=== PATIENT | female | born 1950 | race Caucasian/White ===

== ENCOUNTER 2017-06-09 00:07 | Observation (INO) | payer MEDICARE, MEDICAID ==
[2017-06-09] MEDS ORDERED: HYDROcodone/Acetaminophen 5/325 mg Tablet PO PRN ×2 (02:42)
[2017-06-09] MEDS ORDERED: Ondansetron HCl/PF 4 MG/2 ML Vial IVP PRN (02:42)
[2017-06-09] MEDS ORDERED: Acetaminophen 325 MG TAB PO PRN (02:42)
[2017-06-09] MEDS ORDERED: Ondansetron ODT 4 MG TAB SL PRN (02:42)
[2017-06-09 03:01] VITALS: BMI 20.2
--- NOTE | 2017-06-09 13:10 | HP ---
DATE OF ADMISSION: 06/09/2017 CHIEF COMPLAINT: Swallowing bees. HISTORY OF PRESENT ILLNESS: This is a 66-year-old white female. She was in her home relaxing having Dr Leone. She happened to swallow 2 bees, which were actually in the Dr Sulema can accidentally an d then when she realized there was something in her throat, she felt a strong sting of the bee and sh e was unable to breathe and was coughing, so she took more glasses of water to swallow the obstructio n. As the patient's pain was getting worse, patient was brought to the ER. She did not have any swo llen lips at that time, but right now the patient was noted to have lower lip swelling which was also noticed by her friend at the bedside. Patient denies having any chest pain right now. No nausea, n o vomiting, no diarrhea, but continues to have shortness of breath, feeling of shortness of breath an d feeling of something in her throat. The patient has otherwise no known medical problems. She is a chronic smoker. PAST MEDICAL HISTORY: None. PAST SURGICAL HISTORY: History of hysterectomy many years ago. SOCIAL HISTORY: The patient is a known smoker. Smokes 1 pack a day. No history of alcohol, no hist ory of illicit drug use. FAMILY HISTORY: No significant family history of coronary artery disease. One of her sister wi th lung cancer. REVIEW OF SYSTEMS: All 12 systems are reviewed with the patient thoroughly and found to be negative at this time except the ones described in HPI. The following complete review of systems was negative , unless otherwise mentioned in the HPI or below: Constitutional: Weight loss or gain, sense of well-being, ability to conduct usual activities, exerc ise tolerance. Skin/Breast: Rash, itching, changes in hair growth or loss, nail changes, breast lumps, tenderness, swelling, nipple discharge. Eyes: Vision, double vision, tearing, blind spots, pain. ENT/Mouth: Headaches (location, time of onset, duration, precipitating factors), vertigo, lightheade dness, injury. Vision, double vision, tearing, blind spots, pain, nose bleeding, colds, obstruction, discharge, dental difficulties, gingival bleeding, dentures, neck stiffness, pain, tenderness, masses in thyroid or other areas Cardiovascular: Precordial pain, substernal distress, palpitations, syncope, dyspnea on exertion, or thopnea, nocturnal paroxysmal dyspnea, edema, cyanosis, hypertension, heart murmurs, varicosities, ph lebitis, claudication. Respiratory: Pain, shortness of breath, wheezing, stridor, cough, hemoptysis, fever or night sweats Gastrointestinal: Poor appetite, dysphagia, indigestion, abdominal pain, heartburn, eructation, naus ea, vomiting, hematemesis, jaundice, constipation, or diarrhea, abnormal stools (lilo-colored, tarry, bloody, greasy, foul smelling), flatulence, hemorrhoids, recent changes in bowel habits. Genitourinary: Urgency, frequency, dysuria, nocturia, hematuria, polyuria, oliguria, unusual (or zaid nge in) color of urine, stones, hesitancy, change in size of stream, dribbling, acute retention or in continence, libido, potency. Musculoskeletal: Pain, swelling, redness or heat of muscles or joints, limitation, of motion, muscul ar weakness, atrophy, cramps. Neurologic/Psychiatric: Convulsions, paralyses, tremor, incoordination, paraesthesias, difficulties with memory of speech, sensory or motor disturbances, or muscular coordination (ataxia, tremor), emot ional problems, anxiety, depression, previous psychiatric care, unusual perceptions, hallucinations. Allergy/Immunologic: Skin rash, anemia, bleeding tendency, polydipsia, polyuria, intolerance to heat or cold. HOME MEDICATIONS: None. ALLERGIES: No known drug allergies. PHYSICAL EXAMINATION: VITAL SIGNS: Blood pressure 132/67, heart rate is 95, respiration is 18, saturation 95%. GENERAL: The patient is moderately built and moderately nourished. She does not appears to be in ac lissy distress at this time. She is alert and oriented x3. HEENT: Atraumatic, normocephalic, PERRLA. Extraocular muscles were intact. Oral mucosa is pink and moist. Lower lip is swollen with evidence of angioedema. CARDIOVASCULAR: S1 and S2 normal. No murmurs, rubs or gallops. LUNGS: Bilateral air entry was equal. No wheezing, no crackles. ABDOMEN: Soft, nontender, no guarding, no rebound tenderness. Bowel sounds normal. MUSCULOSKELETAL: No calf tenderness. No pedal edema. No joint tenderness, no joint swelling. SKIN: No cyanosis, no erythema, no rash, no pallor. CENTRAL NERVOUS SYSTEM: Cranial nerve examination II-XII intact. No focal deficits are noted. NECK: No thyromegaly, no cervical lymphadenopathy. PSYCHIATRIC: No signs of suicidal ideation. No signs of bruno. No signs of depression. LABORATORY DATA: WBC 7.4, hemoglobin is 14.2, hematocrit is 42.6, platelets 325. Sodium 144, potass ium 3.4, chloride 104, BUN is 12, creatinine is 0.73, blood sugar 121. ASSESSMENT AND PLAN: 1. Acute angioedema from bee sting. 2. Leukocytosis. 3. Hyperglycemia. PLAN: 1. Plan is to closely monitor this patient. Patient has evidence of angioedema with swollen lower l ip and had swollen tongue prior to admission. The patient was given 1 dose of Solu-Medrol in the ER and Benadryl. We will start the patient on Solu-Medrol at 40 mg q.8 hours and with Benadryl 12.5 mg q.8 hours. We will closely monitor for 24 hours to look for any delayed reaction with digoxin as the patient swallowed both bees. 2. The patient has elevated blood sugars. Most likely this could be from the effect of steroids. W e will check hemoglobin A1c. 3. As patient has leukocytosis, most likely secondary to steroids, but we will closely monitor to lo ok for any evidence of infection. We will check the UA. 4. DVT prophylaxis, Lovenox. 5. Disposition plan to discharge patient tomorrow if the patient remains stable and angioedema resol ves. I spent 75 minutes with this patient.
[2017-06-09] MEDS: diphenhydrAMINE 12.5 MG in Sodium Chloride 0.9% 50 ML IVPB SCH ×2 (15:49→21:31)
[2017-06-09 18:41] LABS: Bilirubin Negative (Negative); Blood, Urine Negative (Negative); Clarity CLOUDY (Clear); Glucose, Urine (Dipstick) Negative (Negative); Leukocyte Moderate (Negative); Nitrite Negative (Negative); Protein, Urine (Dipstick) Negative (Neg-Trace); Specific Gravity, Urine 1.008 (1.002-1.036); Urobilinogen 0.2 mg/dL (0.2-1.0)
[2017-06-09 18:43] LABS: Bacteria/HPF 1+ HPF (None Seen); Hyaline Casts/LPF 0-3 HYALINE CAST LPF (0-3 Hyaline); Pathc Cast-AUWi Flag 0.14 (0-2.49); RBC/HPF 0-3 HPF (0-3); WBC/HPF 21-50 HPF (0-3)
[2017-06-10 03:44] VITALS: TEMP 97.6
[2017-06-10 04:48] LABS: #Lymphocytes 1.4 thou/uL (1.20-3.40); #Monocytes 0.2 thou/uL (0.11-0.59); #Neutrophils 6.3 thou/uL (1.40-6.50); %Basophils 0.2 % (0.0-1.0); %Eosinophils 0.1 % (0.0-10.0); %Lymphocytes 17.4 % (21.0-51.0); %Neutrophils 80.3 % (42.0-75.0); Mean Corpuscular HGB CONC 34.6 g/dL (32.0-36.0); Mean Corpuscular Hemoglobin 32.1 pg (27.0-31.0); Mean Corpuscular Volume 92.9 fl (81.0-99.0); Mean Platelet Volume 6.5 fL (7.4-10.4); Platelet Count 284 thou/uL (130-400); RBC Distribution Width 11.9 % (11.5-14.5); Red Blood Cell (RBC) Count 4.05 mill/uL (4.20-5.40); White Blood Cell (WBC) Count 7.8 thou/uL (4.8-10.8)
[2017-06-10 04:53] LABS: Anion Gap 11 mmol/L (10-20); BUN (Urea Nitrogen) 15 mg/dL (9.8-20.1); Calc. Creatinine Clearance 64 mL/min (70-130); Calcium 9.8 mg/dL (7.8-10.44); Carbon Dioxide 26 mmol/L (23-31); Chloride 108 mmol/L (98-107); Estimated GFR-MDRD 79; Glucose 141 mg/dL (80-115); Potassium 4.1 mmol/L (3.5-5.1); Sodium 141 mmol/L (136-145)
[2017-06-10] MEDS: diphenhydrAMINE 12.5 MG in Sodium Chloride 0.9% 50 ML IVPB SCH (06:11)
[2017-06-10 08:01] VITALS: BP 136/75
[2017-06-10] MEDS ORDERED: Enoxaparin Sodium 40 MG/0.4 ML SYRINGE SC SCH (09:00)
[2017-06-10] MEDS ORDERED: Cephalexin 250 MG CAP PO SCH ×3 (11:00→15:00)
--- NOTE | 2017-06-10 11:50 | DIS ---
DATE OF ADMISSION: 06/09/2017 DATE OF DISCHARGE: 06/10/2017 ADMITTING DIAGNOSIS: Acute bee sting reaction. DISCHARGE DIAGNOSIS: Acute bee sting related angioedema. SECONDARY DIAGNOSIS: Moderate dehydration. HISTORY OF PRESENT ILLNESS AND HOSPITAL COURSE: In brief, this is a 66-year-old white female who hap pened to had a bee sting when she swallowed accidentally Dr. Leone. The patient complained initiall y of coughing and breathing problems when she came to the ER and then she developed a swelling of the lower lip. So, the patient was started on Benadryl and Solu-Medrol. Within 24 hours of steroid glen atment, the patient's symptoms resolved and the lip swelling also resolved. The patient was able to breathe normally on room air. She is a chronic smoker, counseled the patient to quit smoking. The patient is discharged home in stable condition. The patient was noted to have urinary tract infe ction, which was more of incidental finding, but the patient did not have any symptoms. PHYSICAL EXAMINATION: On date of discharge: VITAL SIGNS: Blood pressures are 136/75, heart rate is 94, respiration rate 16 and saturation 98%. CARDIOVASCULAR: S1 and S2 normal. No murmurs, rubs or gallops. LUNGS: Bilateral air entry was equal. No wheezing, no crackles. HEENT: Lips were noted to be in normal size. No tongue swelling and no soft palate swelling was not ed. DISCHARGE MEDICATIONS: The patient was discharged on Benadryl 25 mg p.o. q.8 hours p.r.n. for itchin g and Keflex 500 mg p.o. t.i.d. continue for 10 days. DISCHARGE INSTRUCTIONS: Continue activity as tolerated. Advised to return to the ER if the patient develops any worsening shortness of breath or any lip swelling again. I advised the patient to close ly monitor for any further bee stings. Advised to follow up with the primary care physician in 1-2 w eeks. Advised the patient to quit smoking and counseling was done for 15 minutes. I spent 35 minutes with this patient.
== END 2017-06-10 11:58 | disposition home or self-care (01) ==
LOC: ERS 00:07 → 2SW 02:40
PROVIDERS: ADMIT Internal Medicine; ATTEND Internal Medicine
DX: T63.441A Toxic effect of venom of bees, accidental (unintentional), initial encounter (principal); T78.3XXA Angioneurotic edema, initial encounter; E86.0 Dehydration; F17.210 Nicotine dependence, cigarettes, uncomplicated; R73.9 Hyperglycemia, unspecified; D72.829 Elevated white blood cell count, unspecified; Z90.710 Acquired absence of both cervix and uterus
CPT/HCPCS: 80048; 81001; 83036; 85025; 96365; 96366 ×2; 96372; 96375; 96376 ×2; 97139; 99285; G0378; 36415; A4216; G8996-GN-CH; G8997-GN-CH; J1200; J1650; J2920; J7050

== ENCOUNTER 2018-02-17 21:37 | Inpatient (IN) | payer MEDICAID, MEDICARE ==
[2018-02-17] MEDS ORDERED: Nitroglycerin 2% Ointment 1 INCH/1 GM Packet ONE (22:02)
[2018-02-17] MEDS ORDERED: Ondansetron PF 4 MG/2 ML Vial ONE (22:07)
--- NOTE | 2018-02-17 22:29 | RAD ---
SINGLE VIEW OF THE CHEST 02/17/18 COMPARISON: 12/31/13 HISTORY: Chest pain. FINDINGS: Single view of the chest shows a normal sized cardiomediastinal silhouette with atherosclerotic calci fications in the aorta. There is no evidence of consolidation, mass, or pleural effusion. IMPRESSION: No evidence of acute cardiopulmonary disease. POS: [facility]
[2018-02-17 22:34] LABS: #Basophils 0.1 thou/uL (0.0-0.2); #Lymphocytes 1.5 thou/uL (1.20-3.40); #Monocytes 0.4 thou/uL (0.11-0.59); %Basophils 0.6 % (0.0-1.0); %Eosinophils 0.3 % (0.0-10.0); %Lymphocytes 13.7 % (21.0-51.0); %Monocytes 3.4 % (0.0-10.0); Hemoglobin 13.8 g/dL (12.0-16.0); Mean Corpuscular HGB CONC 33.5 g/dL (32.0-36.0); Mean Corpuscular Hemoglobin 30.4 pg (27.0-31.0); Mean Corpuscular Volume 90.7 fL (78.0-98.0); Mean Platelet Volume 6.7 fL (7.4-10.4); Platelet Count 330 thou/uL (130-400); RBC Distribution Width 13.4 % (11.5-14.5); Red Blood Cell (RBC) Count 4.53 mill/uL (4.20-5.40); White Blood Cell (WBC) Count 10.9 thou/uL (4.8-10.8)
[2018-02-17 22:48] LABS: ALT (SGPT) 9 U/L (8-55); AST (SGOT) 14 U/L (5-34); Albumin 4.1 g/dL (3.4-4.8); Alkaline Phosphatase 99 U/L (40-150); Anion Gap 15 mmol/L (10-20); BUN (Urea Nitrogen) 16 mg/dL (9.8-20.1); Bilirubin, Total 0.3 mg/dL (0.2-1.2); CK (CPK) 79 U/L (29-168); Calc. Creatinine Clearance 0 mL/min (70-130); Carbon Dioxide 25 mmol/L (23-31); Chloride 102 mmol/L (98-107); Estimated GFR-MDRD 74; Globulin 3.6 g/dL (2.4-3.5); Glucose 133 mg/dL (80-115); Potassium 3.5 mmol/L (3.5-5.1); Protein, Total 7.7 g/dL (6.0-8.3); Sodium 138 mmol/L (136-145)
[2018-02-17 22:53] LABS: CKMB 5.8 ng/mL (0-6.6); Troponin I 0.071 ng/mL (< 0.028)
[2018-02-17] MEDS ORDERED: Nitroglycerin 50 MG/250 ML BOT 250 ML ONE (23:26)
[2018-02-17] MEDS ORDERED: Heparin 25,000 units/D5W 500 ML ONE (23:26)
[2018-02-17] MEDS ORDERED: Heparin 1,000 UNITS/ML VIAL ONE ×2 (23:30→23:34)
[2018-02-17 23:35] LABS: PTT 25.1 SEC (22.9-36.1); Prothrombin Time 13.3 SEC (12.0-14.7)
[2018-02-18 00:22] LABS: INR-International Normal Ratio 1.1; Prothrombin Time 14.3 SEC (12.0-14.7)
[2018-02-18 00:30] LABS: ALT (SGPT) 11 U/L (8-55); AST (SGOT) 21 U/L (5-34); Alkaline Phosphatase 100 U/L (40-150); Anion Gap 15 mmol/L (10-20); BUN (Urea Nitrogen) 16 mg/dL (9.8-20.1); Bilirubin, Total 0.3 mg/dL (0.2-1.2); Calc. Creatinine Clearance 0 mL/min (70-130); Calcium 9.8 mg/dL (7.8-10.44); Carbon Dioxide 23 mmol/L (23-31); Chloride 103 mmol/L (98-107); Estimated GFR-MDRD 81; Globulin 3.5 g/dL (2.4-3.5); Glucose 130 mg/dL (80-115); Potassium 3.8 mmol/L (3.5-5.1); Protein, Total 7.5 g/dL (6.0-8.3); Sodium 137 mmol/L (136-145)
[2018-02-18 00:32] LABS: #Basophils 0.1 thou/uL (0.0-0.2); #Lymphocytes 1.3 thou/uL (1.20-3.40); #Monocytes 0.3 thou/uL (0.11-0.59); #Neutrophils 7.7 thou/uL (1.40-6.50); %Basophils 1.1 % (0.0-1.0); %Eosinophils 0.2 % (0.0-10.0); %Lymphocytes 13.4 % (21.0-51.0); %Monocytes 2.7 % (0.0-10.0); %Neutrophils 82.7 % (42.0-75.0); Hemoglobin 13.3 g/dL (12.0-16.0); Mean Corpuscular HGB CONC 32.2 g/dL (32.0-36.0); Mean Corpuscular Hemoglobin 29.2 pg (27.0-31.0); Mean Corpuscular Volume 90.7 fL (78.0-98.0); Mean Platelet Volume 6.8 fL (7.4-10.4); Platelet Count 319 thou/uL (130-400); RBC Distribution Width 13.4 % (11.5-14.5); Red Blood Cell (RBC) Count 4.57 mill/uL (4.20-5.40); White Blood Cell (WBC) Count 9.4 thou/uL (4.8-10.8)
[2018-02-18] MEDS ORDERED: Clopidogrel Bisulfate 300 MG TAB ONE (00:44)
[2018-02-18] MEDS ORDERED: Bivalirudin 250 MG VIAL ONE (00:44)
[2018-02-18] MEDS ORDERED: Heparin 10,000 UNITS/1 ML VIAL ONE (00:53)
[2018-02-18] MEDS ORDERED: Ondansetron PF 4 MG/2 ML Vial ONE (00:54)
[2018-02-18] MEDS ORDERED: DOPamine 400 MG/D5W 250 ML 250 ML ONE (00:54)
[2018-02-18] MEDS ORDERED: Zolpidem Tartrate 5 MG TAB PO PRN ×2 (01:16→02:07)
[2018-02-18] MEDS ORDERED: Morphine 4 MG/ML VIAL SLOW IVP PRN (01:16)
[2018-02-18] MEDS ORDERED: Mag-Al 1200 mg/1200 mg/30 ML UDCUP PO PRN (01:16)
[2018-02-18] MEDS ORDERED: Morphine 2 MG/ML SYRINGE SLOW IVP PRN (01:16)
[2018-02-18] MEDS ORDERED: Clopidogrel Bisulfate 75 MG TAB ONE (01:16)
[2018-02-18] MEDS ORDERED: Nitroglycerin 0.4 MG TAB (25 Tab Bottle) SL PRN ×2 (01:16→02:07)
[2018-02-18] MEDS ORDERED: ALPRAZolam 0.25 MG TAB PO PRN (01:18)
[2018-02-18] MEDS ORDERED: Sodium Chloride 0.9% 1,000 ML IV SCH (01:30)
[2018-02-18] MEDS ORDERED: Ondansetron ODT 4 MG TAB SL PRN (01:52)
[2018-02-18] MEDS ORDERED: Ondansetron PF 4 MG/2 ML Vial IVP PRN ×2 (01:52→02:07)
[2018-02-18] MEDS ORDERED: Acetaminophen 325 MG TAB PO PRN (01:52)
[2018-02-18] MEDS ORDERED: Calcium Carbonate 500 MG ChewTAB PO PRN (02:07)
[2018-02-18] MEDS ORDERED: Ondansetron ODT 4 MG TAB PO PRN (02:07)
[2018-02-18] MEDS ORDERED: Bisacodyl 5 MG TAB PO PRN (02:07)
[2018-02-18] MEDS ORDERED: diphenhydrAMINE 25 MG CAP PO PRN (02:07)
[2018-02-18] MEDS ORDERED: Senokot S 8.6-50 MG TAB PO PRN (02:07)
[2018-02-18] MEDS ORDERED: Acetaminophen 650 MG Suppository PR PRN (02:07)
[2018-02-18 02:14] VITALS: BMI 18.8
[2018-02-18 02:20] LABS: CKMB 21.6 ng/mL (0-6.6); Troponin I 0.335 ng/mL (< 0.028)
[2018-02-18 02:45] LABS: Troponin I 7.235 ng/mL (< 0.028)
[2018-02-18] MEDS: Sodium Chloride 0.9% 1,000 ML IV SCH ×3 (03:24→16:37)
--- NOTE | 2018-02-18 04:31 | HP ---
HISTORY OF PRESENT ILLNESS: Angelita Butler is a 67-year-old white female with previous history of hypertension and hypercholesterolemia; however, she is not taking any medications for 1 year due to the cost. Today at 6:45 PM, she had onset of central chest pressure and she came to the emergency room. Initial EKGs only showed non-specific ST and T wave changes; however, repeat EKG now is showing [address] segment elevation in II, III and aVF, V4 through V6 consistent with inferolateral myocardial infarction. Although, at the present time, she states she is pain free. PAST MEDICAL HISTORY: Hypertension, hypercholesterolemia, noncompliance with medications. No history of diabetes. MEDICATIONS: None. ALLERGIES: NONE. OPERATIONS: None. SOCIAL HISTORY: She smokes 3 packs per day. She does not drink. FAMILY HISTORY: Negative for coronary artery disease. REVIEW OF SYSTEMS: A 12-point review of systems is unremarkable. PHYSICAL EXAMINATION: VITAL SIGNS: Blood pressure 120/80, pulse of 70. HEENT: PERRL. NECK: Supple. CHEST: Clear. CARDIAC: S1 and S2 are normal without any S3, S4, or murmurs. Carotid upstroke is normal with a right carotid bruit. ABDOMEN: Normal bowel sounds without tenderness or organomegaly. EXTREMITIES: Revealed no clubbing, cyanosis, or edema. NEUROLOGICAL: Grossly intact. LABORATORY DATA: EKG findings as noted above. White count 10,900, hemoglobin 13.8, hematocrit 41.1. INR 1.0. Sodium 138, potassium 3.5, chloride 102, carbon dioxide 25, BUN 16, creatinine 0.78, glucose 133. Troponin I is 0.071. CK-MB 5.8. IMPRESSION: 1. Acute coronary syndrome, now with [address]-elevation in the inferolateral leads. 2. Hypertension, noncompliance with medications. 3. Hypercholesterolemia, noncompliance with medications. 4. Smokes 3 packs per day. 5. Right carotid bruit. PLAN: Situation was discussed with the patient. It was recommended to undergo emergent catheterization. Risks were discussed including , myocardial infarction, dye reaction, vascular injury, CVA, transfusion, limb loss, renal loss, etc. Risks of stent placement were discussed including , myocardial infarction, emergent CABG, restenosis, stent thrombosis, vessel perforation, etc. With her history of noncompliance with medications, I would only place a bare- metal stent. She agrees to proceed. Job ID: [id number] SHALINI
[2018-02-18 04:50] LABS: #Lymphocytes 1.5 thou/uL (1.20-3.40); #Monocytes 0.3 thou/uL (0.11-0.59); #Neutrophils 6.2 thou/uL (1.40-6.50); %Basophils 0.1 % (0.0-1.0); %Eosinophils 0.2 % (0.0-10.0); %Lymphocytes 18.6 % (21.0-51.0); %Monocytes 3.6 % (0.0-10.0); %Neutrophils 77.5 % (42.0-75.0); Hemoglobin 12.1 g/dL (12.0-16.0); Mean Corpuscular HGB CONC 33.7 g/dL (32.0-36.0); Mean Corpuscular Hemoglobin 30.2 pg (27.0-31.0); Mean Corpuscular Volume 89.4 fL (78.0-98.0); Mean Platelet Volume 6.6 fL (7.4-10.4); Platelet Count 300 thou/uL (130-400); RBC Distribution Width 13.2 % (11.5-14.5); Red Blood Cell (RBC) Count 4.01 mill/uL (4.20-5.40)
[2018-02-18 05:04] LABS: Anion Gap 13 mmol/L (10-20); BUN (Urea Nitrogen) 15 mg/dL (9.8-20.1); Calc. Creatinine Clearance 70 mL/min (70-130); Calcium 8.9 mg/dL (7.8-10.44); Carbon Dioxide 23 mmol/L (23-31); Cardiac Risk 4.3 (Less than 4.5); Chloride 107 mmol/L (98-107); Cholesterol 198 mg/dl (< 200 Desired); Estimated GFR-MDRD Greater than 90; Glucose 123 mg/dL (80-115); HDL Cholesterol 46 mg/dL (>60 Neg Risk); LDL Cholesterol, Calculated 132 mg/dL; Potassium 3.8 mmol/L (3.5-5.1); Sodium 139 mmol/L (136-145); Triglycerides 101 mg/dL (Less than 150)
--- NOTE | 2018-02-18 07:46 | HP ---
CHIEF COMPLAINT: Chest pain. HISTORY OF PRESENT ILLNESS: This is a 67-year-old white female with past medical history of hypertension and hypercholesterolemia, who presented to our ED via EMS with a chief complaint of chest pain. Per patient, the chest pain is 5/10, severe, located substernally. The patient states that she has been noncompliant with her medications, and on the day of admission around 6:45, she had an onset of substernal chest pain, which was pressure-like in nature. The patient endorses chest pain, otherwise denies any complaint of fever, chills, abdominal pain, dysuria, hematuria, hematochezia, or melena. EMERGENCY DEPARTMENT COURSE: In the ED, the patient was found to have nonspecific ST and T-wave changes. Repeat EKG showed [address]-segment elevation in leads II, III, aVF, and V4 through V6 consistent with inferolateral MT. At that time, physical therapy assistant was called and per the troponins, the patient's first set was 0.07, which was indeterminate, but the second set was . The patient was then sent to the [facility] and a STEMI alert was called. REVIEW OF SYSTEMS: Positive for chest pain, otherwise as documented in the HPI, all other systems were reviewed and are negative. PAST MEDICAL HISTORY: Hypertension and hypercholesterolemia. MEDICATIONS: The patient does not take her medications. The patient is noncompliant. FAMILY HISTORY: Negative for coronary artery disease. ALLERGIES: NO KNOWN DRUG ALLERGIES. PAST SURGICAL HISTORY: No known surgery. SOCIAL HISTORY: The patient smokes 3 packs per day. The patient denies any illicit drug use. The patient lives at home with family. PHYSICAL EXAMINATION: VITAL SIGNS: The patient's blood pressure is 157/86, pulse of 78, respiratory rate of 24, temperature 97.6, O2 saturation is 97%. GENERAL: The patient is alert and oriented x3, not in acute distress. The patient is lying comfortably in bed, does not appear to be in any distress, speaking in full sentences. HEENT: Normocephalic, atraumatic. Pupils are equal, round, and reactive to light. Extraocular movements are intact. No scleral icterus. No conjunctival pallor. NECK: Trachea is midline. Full range of motion. LUNGS: Clear to auscultation bilaterally. No wheezing, no rales, no rhonchi appreciated. CARDIAC: Positive S1 and S2. Regular rate and rhythm. No murmurs, no gallops, no rubs appreciated. ABDOMEN: Soft, nontender, and nondistended. Positive bowel sounds in all quadrants. EXTREMITIES: The patient has 5/5 upper extremity strength with good pulses bilaterally and 5/5 lower extremity strength, good pulses bilaterally. NEUROLOGIC: Cranial nerves 2 through 12 grossly intact. No neurologic deficits noted. SKIN: Warm, dry, and intact. PSYCHIATRIC: Normal affect. DIAGNOSTIC DATA: EKG showed ST depression in V2 and V3 and T-wave inverted. Repeated EKG showed ST elevations in II, III, and aVF. Labs: WBC 10.9, hemoglobin 13.8, hematocrit 41.1, platelet count 330. PT is 13.3, INR is 1.0, PTT 25.1. Sodium is 138, potassium is 3.5, BUN is 16, creatinine is 0.78, glucose is 133. Troponin first set is 0.071, second set . CK-MB 21.6. ASSESSMENT AND PLAN: 1. This is a 67-year-old female who is very noncompliant, presenting with ST elevation myocardial infarction. At this point, the patient has been admitted to the ICU. Cardiology has been consulted. The patient is being scheduled to go to the [facility] for PCI. We will follow up with the physical therapy assistant recommendations and we have started the patient on cardiac medications. We will continue these medications and we will monitor the patient in the ICU after cardiac cath. 2. History of hypertension. The patient is noncompliant with medications. At this point, we will monitor the patient's blood pressure closely and we will manage the patient's blood pressure accordingly. 3. Hyperlipidemia. We will start the patient on statins. We will continue the patient on her medication. 4. Deep vein thrombosis and gastrointestinal prophylaxis. Job ID: [id number]
[2018-02-18] MEDS ORDERED: Aspirin 325 mg Enteric Coated Tablet PO SCH (09:00)
[2018-02-18] MEDS ORDERED: Clopidogrel Bisulfate 75 MG TAB PO SCH (09:00)
[2018-02-18] MEDS: Metoprolol Tartrate 25 MG TAB PO SCH ×2 (09:41→20:40)
[2018-02-18] MEDS: Clopidogrel Bisulfate 75 MG TAB PO SCH (09:41)
[2018-02-18] MEDS: Famotidine 20 MG TAB PO SCH ×2 (09:42→20:38)
[2018-02-18] MEDS: Famotidine/PF 20 mg/2ml Vial SLOW IVP SCH ×2 (09:42→20:39)
[2018-02-18] MEDS: Acetaminophen 325 MG TAB PO PRN (10:23)
--- NOTE | 2018-02-18 10:39 | ULT ---
CAROTID DUPLEX ULTRASOUND: INDICATIONS: History of right carotid bruit. FINDINGS: There is mild atherosclerotic plaque involving the distal right common carotid artery, the distal lef t common carotid artery, and the proximal left internal carotid artery. The peak systolic velocity measured in the right common carotid artery was 166.3 cm per second. The peak systolic velocity in the right internal carotid artery was 94 cm per second. The right ICA/CCA ratio is 0.57. Antegrade flow is seen within the right vertebral artery. The peak systolic velocity measured in the left common carotid artery was 109.4 cm per second, and th e left ICA was 88.4 cm per second. The left ICA/CCA ratio is 0.81. Antegrade flow is seen within th e left vertebral artery. There is slight heterogeneity seen of the right thyroid gland. There is a 2.1 cm heterogeneous but p redominantly hyperechoic solid mass within the posterior right thyroid gland. In light of the patien t's age and the size of the lesion, a dedicated thyroid ultrasound would be recommended. IMPRESSION: 1. No hemodynamically significant stenosis seen involving the internal carotid artery. 2. Large solid nodule within the right thyroid gland. In light of the patient's age and size of the lesion, a dedicated nonemergent thyroid ultrasound evaluation is recommended. POS: [facility]
--- NOTE | 2018-02-18 13:12 | PDOC.PN ---
- Subjective Encounter Start Date: 02/18/18 Encounter Start Time: 10:10 Subjective: no chest pain or sob -: grand children at bedside - Objective Resuscitation Status - Order Detail: 02/18/18 00:46 Resuscitation Status Routine Resuscitation Status: FULL: Full Resuscitation MAR Reviewed: Yes Vital Signs & Weight: Vital Signs (12 hours) Temp Pulse Ox 02/18/18 12:00 98.3 F 02/18/18 11:51 95 02/18/18 08:00 98.4 F 02/18/18 07:48 98 02/18/18 04:00 97.8 F 02/18/18 02:42 98 02/18/18 02:00 97.6 F Weight Weight 109 lb 9.116 oz Most Recent Monitor Data Heart Rate from ECG 73 NIBP 111/62 NIBP BP-Mean 78 Respiration from ECG 17 SpO2 95 I&O: 02/17/18 02/18/18 02/19/18 06:59 06:59 06:59 Intake Total 389 540 Output Total 550 775 Balance -161 -235 Result Diagrams: 02/18/18 04:20 02/18/18 04:20 Phys Exam - Physical Examination HEENT: PERRLA, moist MMs Neck: no JVD, supple Respiratory: no wheezing, no rales rhonchi+ Cardiovascular: RRR, no significant murmur Gastrointestinal: soft, non-tender, positive bowel sounds Musculoskeletal: no edema, pulses present Neurological: non-focal, moves all 4 limbs Psychiatric: normal affect, A&O x 3 Dx/Plan (1) STEMI (ST elevation myocardial infarction) Status: Acute Comment: s/p stent to circumflex (2) HTN (hypertension) Code(s): I10 - ESSENTIAL (PRIMARY) HYPERTENSION Status: Chronic Qualifiers: Hypertension type: essential hypertension Qualified Code(s): I10 - Essential (primary) hypertension (3) Dyslipidemia Code(s): E78.5 - HYPERLIPIDEMIA, UNSPECIFIED Status: Chronic (4) Tobacco abuse Code(s): Z72.0 - TOBACCO USE Status: Chronic (5) Non compliance with medical treatment Code(s): Z91.19 - PATIENT'S NONCOMPLIANCE W OTH MEDICAL TREATMENT AND REGIMEN Status: Chronic - Plan is on asp, plavix, lipitor, lopressor -: iv fluids -: oral diet -: to amb after cath protocol is completed -: counselled reg med and dietary compliance * . Review of Systems - Medications/Allergies Allergies/Adverse Reactions: Allergies Allergy/AdvReac Type Severity Reaction Status Date / Time No Known Allergies Allergy Verified 06/09/17 02:56 Medications: Current Medications Acetaminophen (Tylenol) 650 mg PO Q4H PRN PRN Reason: Headache/Fever/Mild Pain (1-3) Last Admin: 02/18/18 10:23 Dose: 650 mg Acetaminophen (Tylenol) 650 mg [place] Q4H PRN PRN Reason: Headache/Fever/Mild Pain (1-3) Al Hydroxide/Mg Hydroxide (Maalox) 30 ml PO Q3H PRN PRN Reason: Indigestion Alprazolam (Xanax) 0.25 mg PO QIDPRN PRN PRN Reason: Anxiety Aspirin (Aspirin Chewable) 81 mg PO DAILY [facility] Last Admin: 02/18/18 09:42 Dose: 81 mg Atorvastatin Calcium (Lipitor) 40 mg PO HS [facility] Bisacodyl (Dulcolax) 10 mg PO DAILYPRN PRN PRN Reason: Constipation Calcium Carbonate (Tums) 1,000 mg PO Q4H PRN PRN Reason: Heartburn or Indigestion Clopidogrel Bisulfate (Plavix) 75 mg PO DAILY [facility] Last Admin: 02/18/18 09:41 Dose: 75 mg Diphenhydramine HCl (Benadryl) 25 mg PO Q6H PRN PRN Reason: itching Famotidine (Pepcid) 20 mg SLOW IVP Q12HR [facility] Last Admin: 02/18/18 09:42 Dose: Not Given Famotidine (Pepcid) 20 mg PO BID [facility] Last Admin: 02/18/18 09:42 Dose: 20 mg Guaifenesin/Dextromethorphan (Robitussin Dm) 15 ml PO Q4H PRN PRN Reason: Cough Sodium Chloride (Normal Saline 0.9%) 1,000 mls @ 100 mls/hr IV .Q10H [facility] Last Admin: 02/18/18 07:35 Dose: 1,000 mls Metoprolol Tartrate (Lopressor) 12.5 mg PO BID [facility] Last Admin: 02/18/18 09:41 Dose: 12.5 mg Morphine Sulfate (Morphine) 2 mg SLOW IVP Q4H PRN PRN Reason: Moderate Pain (4-6) Morphine Sulfate (Morphine) 4 mg SLOW IVP Q4H PRN PRN Reason: Severe Pain (7-10) Nitroglycerin (Nitrostat) 0.4 mg SL Q5MIN PRN PRN Reason: Chest Pain Nitroglycerin (Nitrostat) 0.4 mg SL Q5MIN PRN PRN Reason: Chest Pain Ondansetron HCl (Zofran Odt) 4 mg PO Q6H PRN PRN Reason: Nausea/Vomiting Ondansetron HCl (Zofran) 4 mg IVP Q6H PRN PRN Reason: Nausea/Vomiting Senna/Docusate Sodium (Senokot S) 2 tab PO BIDPRN PRN PRN Reason: Constipation Sodium Chloride (Flush - Normal Saline) 10 ml IVF Q12HR [facility] Last Admin: 02/18/18 09:43 Dose: 10 ml Sodium Chloride (Flush - Normal Saline) 10 ml IVF PRN PRN PRN Reason: Saline Flush Sodium Chloride (Flush - Normal Saline) 10 ml IVF Q12HR [facility] Sodium Chloride (Flush - Normal Saline) 10 ml IVF PRN PRN PRN Reason: Saline Flush Zolpidem Tartrate (Ambien) 5 mg PO HSPRN PRN PRN Reason: Insomnia Zolpidem Tartrate (Ambien) 5 mg PO HSPRN PRN PRN Reason: Insomnia
[2018-02-18] MEDS ORDERED: Sodium Chloride 0.9% 250 ML 250 ML IVPB SCH (20:30)
[2018-02-18] MEDS: Atorvastatin Calcium 40 MG TAB PO SCH (20:38)
[2018-02-18] MEDS: Guaifenesin DM 100-10/5 ML UDCUP PO PRN (20:42)
[2018-02-19 05:45] LABS: #Basophils 0.1 thou/uL (0.0-0.2); #Eosinphils 0.1 thou/uL (0.0-0.7); #Lymphocytes 2.3 thou/uL (1.20-3.40); #Monocytes 0.3 thou/uL (0.11-0.59); #Neutrophils 2.8 thou/uL (1.40-6.50); %Basophils 0.9 % (0.0-1.0); %Lymphocytes 41.6 % (21.0-51.0); %Monocytes 5.7 % (0.0-10.0); %Neutrophils 50.8 % (42.0-75.0); Hemoglobin 11.7 g/dL (12.0-16.0); Mean Corpuscular HGB CONC 33.4 g/dL (32.0-36.0); Mean Corpuscular Hemoglobin 30.4 pg (27.0-31.0); Mean Platelet Volume 6.8 fL (7.4-10.4); Platelet Count 250 thou/uL (130-400); RBC Distribution Width 13.1 % (11.5-14.5); Red Blood Cell (RBC) Count 3.86 mill/uL (4.20-5.40); White Blood Cell (WBC) Count 5.5 thou/uL (4.8-10.8)
[2018-02-19 06:00] LABS: ALT (SGPT) 24 U/L (8-55); AST (SGOT) 75 U/L (5-34); Albumin 3.2 g/dL (3.4-4.8); Alkaline Phosphatase 76 U/L (40-150); Anion Gap 9 mmol/L (10-20); BUN (Urea Nitrogen) 10 mg/dL (9.8-20.1); Bilirubin, Total 0.3 mg/dL (0.2-1.2); Calc. Creatinine Clearance 62 mL/min (70-130); Calcium 8.8 mg/dL (7.8-10.44); Carbon Dioxide 25 mmol/L (23-31); Cardiac Risk 4.1 (Less than 4.5); Chloride 110 mmol/L (98-107); Cholesterol 173 mg/dl (< 200 Desired); Estimated GFR-MDRD 85; Globulin 2.8 g/dL (2.4-3.5); Glucose 86 mg/dL (80-115); HDL Cholesterol 42 mg/dL (>60 Neg Risk); LDL Cholesterol, Calculated 116 mg/dL; Potassium 3.8 mmol/L (3.5-5.1); Sodium 140 mmol/L (136-145); Triglycerides 75 mg/dL (Less than 150)
[2018-02-19] MEDS: Metoprolol Tartrate 25 MG TAB PO SCH ×2 (08:34→21:07)
[2018-02-19] MEDS: Clopidogrel Bisulfate 75 MG TAB PO SCH (08:34)
[2018-02-19] MEDS: Famotidine 20 MG TAB PO SCH ×2 (08:35→21:07)
[2018-02-19] MEDS: Famotidine/PF 20 mg/2ml Vial SLOW IVP SCH (08:35)
--- NOTE | 2018-02-19 12:20 | PDOC.PN ---
- Subjective Encounter Start Date: 02/19/18 Encounter Start Time: 07:45 Subjective: no chest pain or palp -: feels good, no sob - Objective Resuscitation Status - Order Detail: 02/18/18 00:46 Resuscitation Status Routine Resuscitation Status: FULL: Full Resuscitation MAR Reviewed: Yes Vital Signs & Weight: Vital Signs (12 hours) Temp Pulse Resp Pulse Ox 02/19/18 12:00 98.5 F 02/19/18 08:00 98.2 F 02/19/18 07:25 73 17 02/19/18 07:04 96 02/19/18 07:00 98.2 F 02/19/18 04:00 98.6 F Weight Weight 109 lb 9.116 oz Most Recent Monitor Data Heart Rate from ECG 86 NIBP 110/68 NIBP BP-Mean 82 Respiration from ECG 26 SpO2 98 I&O: 02/18/18 02/19/18 02/20/18 06:59 06:59 06:59 Intake Total 389 2156 840 Output Total 550 2700 700 Balance -161 -544 140 Result Diagrams: 02/19/18 05:19 02/19/18 05:19 Phys Exam - Physical Examination HEENT: PERRLA, moist MMs Neck: no JVD, supple Respiratory: no wheezing, no rales Cardiovascular: RRR, no significant murmur Gastrointestinal: soft, non-tender, positive bowel sounds Musculoskeletal: no edema, pulses present Neurological: non-focal, moves all 4 limbs Psychiatric: normal affect, A&O x 3 Dx/Plan (1) STEMI (ST elevation myocardial infarction) Status: Acute Qualifiers: Involved coronary artery: left circumflex coronary artery Qualified Code(s) : I21.21 - ST elevation (STEMI) myocardial infarction involving left circumflex coronary artery Comment: s/p stent to circumflex (2) HTN (hypertension) Code(s): I10 - ESSENTIAL (PRIMARY) HYPERTENSION Status: Chronic Qualifiers: Hypertension type: essential hypertension Qualified Code(s): I10 - Essential (primary) hypertension (3) Dyslipidemia Code(s): E78.5 - HYPERLIPIDEMIA, UNSPECIFIED Status: Chronic (4) Tobacco abuse Code(s): Z72.0 - TOBACCO USE Status: Chronic (5) Non compliance with medical treatment Code(s): Z91.19 - PATIENT'S NONCOMPLIANCE W OTH MEDICAL TREATMENT AND REGIMEN Status: Chronic - Plan hemostable -: is on asp, lipitor and lopressor -: dc plan per cardio advice -: to amb in hallway, may tx to tele if she stay tonight * . Review of Systems - Medications/Allergies Allergies/Adverse Reactions: Allergies Allergy/AdvReac Type Severity Reaction Status Date / Time No Known Allergies Allergy Verified 06/09/17 02:56 Medications: Current Medications Acetaminophen (Tylenol) 650 mg PO Q4H PRN PRN Reason: Headache/Fever/Mild Pain (1-3) Last Admin: 02/18/18 10:23 Dose: 650 mg Acetaminophen (Tylenol) 650 mg [place] Q4H PRN PRN Reason: Headache/Fever/Mild Pain (1-3) Al Hydroxide/Mg Hydroxide (Maalox) 30 ml PO Q3H PRN PRN Reason: Indigestion Albuterol/Ipratropium (Duoneb) 3 ml NEB [id number] [facility] Last Admin: 02/19/18 07:25 Dose: 3 ml Alprazolam (Xanax) 0.25 mg PO QIDPRN PRN PRN Reason: Anxiety Aspirin (Aspirin Chewable) 81 mg PO DAILY [facility] Last Admin: 02/19/18 08:35 Dose: 81 mg Atorvastatin Calcium (Lipitor) 40 mg PO HS [facility] Last Admin: 02/18/18 20:38 Dose: 40 mg Bisacodyl (Dulcolax) 10 mg PO DAILYPRN PRN PRN Reason: Constipation Calcium Carbonate (Tums) 1,000 mg PO Q4H PRN PRN Reason: Heartburn or Indigestion Clopidogrel Bisulfate (Plavix) 75 mg PO DAILY [facility] Last Admin: 02/19/18 08:34 Dose: 75 mg Diphenhydramine HCl (Benadryl) 25 mg PO Q6H PRN PRN Reason: itching Famotidine (Pepcid) 20 mg PO BID [facility] Last Admin: 02/19/18 08:35 Dose: 20 mg Guaifenesin/Dextromethorphan (Robitussin Dm) 15 ml PO Q4H PRN PRN Reason: Cough Last Admin: 02/18/18 20:42 Dose: 15 ml Metoprolol Tartrate (Lopressor) 12.5 mg PO BID [facility] Last Admin: 02/19/18 08:34 Dose: 12.5 mg Morphine Sulfate (Morphine) 2 mg SLOW IVP Q4H PRN PRN Reason: Moderate Pain (4-6) Morphine Sulfate (Morphine) 4 mg SLOW IVP Q4H PRN PRN Reason: Severe Pain (7-10) Nitroglycerin (Nitrostat) 0.4 mg SL Q5MIN PRN PRN Reason: Chest Pain Nitroglycerin (Nitrostat) 0.4 mg SL Q5MIN PRN PRN Reason: Chest Pain Ondansetron HCl (Zofran Odt) 4 mg PO Q6H PRN PRN Reason: Nausea/Vomiting Ondansetron HCl (Zofran) 4 mg IVP Q6H PRN PRN Reason: Nausea/Vomiting Senna/Docusate Sodium (Senokot S) 2 tab PO BIDPRN PRN PRN Reason: Constipation Sodium Chloride (Flush - Normal Saline) 10 ml IVF Q12HR [facility] Last Admin: 02/19/18 08:35 Dose: 10 ml Sodium Chloride (Flush - Normal Saline) 10 ml IVF PRN PRN PRN Reason: Saline Flush Sodium Chloride (Flush - Normal Saline) 10 ml IVF Q12HR [facility] Last Admin: 02/19/18 08:35 Dose: 10 ml Sodium Chloride (Flush - Normal Saline) 10 ml IVF PRN PRN PRN Reason: Saline Flush Zolpidem Tartrate (Ambien) 5 mg PO HSPRN PRN PRN Reason: Insomnia Zolpidem Tartrate (Ambien) 5 mg PO HSPRN PRN PRN Reason: Insomnia
[2018-02-19] MEDS: Acetaminophen 325 MG TAB PO PRN (14:34)
--- NOTE | 2018-02-19 20:10 | ULT ---
THYROID ULTRASOUND: HISTORY: Thyroid nodules. COMPARISON: None. TECHNIQUE: Real-time imaging of the thyroid gland was performed. FINDINGS: The right lobe measures 1.8 x 2.3 x 4.8 cm. The left lobe measures 1.2 x 1.3 x 4 cm. Bilateral thyroid nodules are noted. On the left side, the largest is a lower pole nodule, measuring 8 x 11 mm in size. It is solid in appearance. On the right side, the largest nodule is 19 x 29 mm, and it is in the lower pole of the right lobe. It is associated with some increased vascularity. I t actually appears to lie more posterior to the thyroid gland. I cannot exclude this as a parathyroi d adenoma, although it is most likely just a slightly exophytic appearance to a thyroid nodule. IMPRESSION: Bilateral thyroid nodules. The larger, solid nodule is in the lower pole of the right lobe. I canno t definitely exclude the possibility that this would be extrinsic to the gland, possibly related to a parathyroid mass, although I suspect it is most likely a thyroid nodule, given the presence of other nodules. Given its size, consideration for fine needle aspiration would be suggested. POS: GENOVEVA
[2018-02-19] MEDS: Atorvastatin Calcium 40 MG TAB PO SCH (21:07)
--- NOTE | 2018-02-19 21:19 | EKG ---
Test Reason : TIMED 0500 Blood Pressure : / mmHG Vent. Rate : 072 BPM Atrial Rate : 072 BPM P-R Int : 120 ms QRS Dur : 086 ms QT Int : 404 ms P-R-T Axes : 030 016 096 degrees QTc Int : 442 ms Normal sinus rhythm Low voltage QRS Nonspecific ST and T wave abnormality Abnormal ECG No previous ECGs available Confirmed by CAROLYN CARBALLO, DR. Gates ([id number]) on 02/19/2018 9:18:50 PM Referred By: Beatriz PERKINS Confirmed By:DR. Kody LEON MD
[2018-02-20 10:09] LABS: Free T4 (Free Thyroxine) 1.04 ng/dL (0.70-1.48); Thyroid Stimulating Hormone 0.7189 uIU/mL (0.35-4.94)
[2018-02-20] MEDS: Clopidogrel Bisulfate 75 MG TAB PO SCH (10:21)
[2018-02-20] MEDS: Famotidine 20 MG TAB PO SCH ×2 (10:21→20:11)
[2018-02-20] MEDS: Metoprolol Tartrate 25 MG TAB PO SCH ×2 (10:22→22:45)
--- NOTE | 2018-02-20 16:14 | PDOC.PN ---
- Subjective Encounter Start Date: 02/20/18 Encounter Start Time: 12:00 Subjective: no chest pain or palp -: feels good, is amb in room - Objective Resuscitation Status - Order Detail: 02/18/18 00:46 Resuscitation Status Routine Resuscitation Status: FULL: Full Resuscitation MAR Reviewed: Yes Vital Signs & Weight: Vital Signs (12 hours) Temp Pulse Pulse Pulse Resp BP BP 02/20/18 15:00 98.6 F 02/20/18 13:33 82 20 02/20/18 11:00 98.7 F 02/20/18 10:52 85 86 110/65 87/54 L 02/20/18 08:00 02/20/18 07:39 79 18 02/20/18 07:00 98.6 F Pulse Ox Pulse Ox Pulse Ox 02/20/18 15:00 02/20/18 13:33 02/20/18 11:00 02/20/18 10:52 100 99 02/20/18 08:00 98 02/20/18 07:39 02/20/18 07:00 Weight Admit Weight 109 lb Weight 109 lb 9.116 oz Most Recent Monitor Data Heart Rate from ECG 98 NIBP 88/52 NIBP BP-Mean 64 Respiration from ECG 20 SpO2 96 I&O: 02/19/18 02/20/18 02/21/18 06:59 06:59 06:59 Intake Total 2156 2040 600 Output Total 2700 2950 1200 Balance -544 -910 -600 Result Diagrams: 02/19/18 05:19 02/19/18 05:19 Phys Exam - Physical Examination HEENT: PERRLA, moist MMs Neck: no JVD, supple Respiratory: no wheezing, no rales occ rhonchi Cardiovascular: RRR, no significant murmur Gastrointestinal: soft, non-tender, positive bowel sounds Musculoskeletal: no edema, pulses present Neurological: non-focal, moves all 4 limbs Psychiatric: normal affect, A&O x 3 Dx/Plan (1) STEMI (ST elevation myocardial infarction) Status: Acute Qualifiers: Involved coronary artery: left circumflex coronary artery Qualified Code(s) : I21.21 - ST elevation (STEMI) myocardial infarction involving left circumflex coronary artery Comment: s/p stent to circumflex (2) HTN (hypertension) Code(s): I10 - ESSENTIAL (PRIMARY) HYPERTENSION Status: Chronic Qualifiers: Hypertension type: essential hypertension Qualified Code(s): I10 - Essential (primary) hypertension (3) Dyslipidemia Code(s): E78.5 - HYPERLIPIDEMIA, UNSPECIFIED Status: Chronic (4) Tobacco abuse Code(s): Z72.0 - TOBACCO USE Status: Chronic (5) Non compliance with medical treatment Code(s): Z91.19 - PATIENT'S NONCOMPLIANCE W OTH MEDICAL TREATMENT AND REGIMEN Status: Chronic - Plan thyroid nodules, outpt fnac -: is on asp, plavix, lopressor and lipitor -: dc plan per cardiology adv * . Review of Systems - Medications/Allergies Allergies/Adverse Reactions: Allergies Allergy/AdvReac Type Severity Reaction Status Date / Time No Known Allergies Allergy Verified 06/09/17 02:56 Medications: Current Medications Acetaminophen (Tylenol) 650 mg PO Q4H PRN PRN Reason: Headache/Fever/Mild Pain (1-3) Last Admin: 02/19/18 14:34 Dose: 650 mg Acetaminophen (Tylenol) 650 mg [place] Q4H PRN PRN Reason: Headache/Fever/Mild Pain (1-3) Al Hydroxide/Mg Hydroxide (Maalox) 30 ml PO Q3H PRN PRN Reason: Indigestion Albuterol/Ipratropium (Duoneb) 3 ml NEB [id number] [facility] Last Admin: 02/20/18 13:33 Dose: 3 ml Alprazolam (Xanax) 0.25 mg PO QIDPRN PRN PRN Reason: Anxiety Aspirin (Aspirin Chewable) 81 mg PO DAILY [facility] Last Admin: 02/20/18 10:21 Dose: 81 mg Atorvastatin Calcium (Lipitor) 40 mg PO HS [facility] Last Admin: 02/19/18 21:07 Dose: 40 mg Bisacodyl (Dulcolax) 10 mg PO DAILYPRN PRN PRN Reason: Constipation Calcium Carbonate (Tums) 1,000 mg PO Q4H PRN PRN Reason: Heartburn or Indigestion Clopidogrel Bisulfate (Plavix) 75 mg PO DAILY [facility] Last Admin: 02/20/18 10:21 Dose: 75 mg Diphenhydramine HCl (Benadryl) 25 mg PO Q6H PRN PRN Reason: itching Famotidine (Pepcid) 20 mg PO BID [facility] Last Admin: 02/20/18 10:21 Dose: 20 mg Guaifenesin/Dextromethorphan (Robitussin Dm) 15 ml PO Q4H PRN PRN Reason: Cough Last Admin: 02/18/18 20:42 Dose: 15 ml Metoprolol Tartrate (Lopressor) 12.5 mg PO BID [facility] Last Admin: 02/20/18 10:22 Dose: Not Given Morphine Sulfate (Morphine) 2 mg SLOW IVP Q4H PRN PRN Reason: Moderate Pain (4-6) Morphine Sulfate (Morphine) 4 mg SLOW IVP Q4H PRN PRN Reason: Severe Pain (7-10) Nitroglycerin (Nitrostat) 0.4 mg SL Q5MIN PRN PRN Reason: Chest Pain Ondansetron HCl (Zofran Odt) 4 mg PO Q6H PRN PRN Reason: Nausea/Vomiting Ondansetron HCl (Zofran) 4 mg IVP Q6H PRN PRN Reason: Nausea/Vomiting Senna/Docusate Sodium (Senokot S) 2 tab PO BIDPRN PRN PRN Reason: Constipation Sodium Chloride (Flush - Normal Saline) 10 ml IVF Q12HR [facility] Last Admin: 02/20/18 10:22 Dose: 10 ml Sodium Chloride (Flush - Normal Saline) 10 ml IVF PRN PRN PRN Reason: Saline Flush Zolpidem Tartrate (Ambien) 5 mg PO HSPRN PRN PRN Reason: Insomnia
[2018-02-20] MEDS: Atorvastatin Calcium 40 MG TAB PO SCH (20:11)
--- NOTE | 2018-02-21 08:24 | PQF ---
CLINICAL DOCUMENTATION IMPROVEMENT CLARIFICATION FORM: ICD-10 Updated PLEASE DO AN ADDENDUM TO THE PROGRESS NOTE WITH ANY DOCUMENTATION UPDATES OR ADDITIONS AND CARRY THROUGH TO DC SUMMARY. THANK YOU. Date: 02/21 ATTN: DR. BREE JOHNSON Please exercise your independent, professional judgment in responding to the clarification form. Clinical indicators are provided on the bottom of this form for your review. Please check appropriate box(s): [ ] Protein Calorie Malnutrition: [ ] Mild [ X] Moderate [ ] Severe [ ] Underweight without malnutrition [ ] Cachexia [ ] Other diagnosis [ ] Unable to determine CLINICAL INDICATORS - SIGNS / SYMPTOMS / LABS BMI: 18.0 RELIEF MATE NUTRITION ASSESSMENT 02/20: TRIGGERED FOR LOW BMI OBJECTIVE ASSESSMENT: MILD TO MODERATE TEMPORAL MUSCLE WASTING OBSERVED; PATIENT WITH MINIMAL VISCERAL FAT NUTRITION DIAGNOSIS: UNDERWEIGHT EVIDENCED BY MILD TO MODERATE MUSCLE WASTING & LITTLE FAT PRESENT RISK FACTORS: TOBACCO ABUSE (3 PPD) STEMI TREATMENT: RELIEF MATE NUTRITION ASSESSMENT NUTRITION SUPPLEMENT (ENSURE ENLIVE BID) Moderate Malnutrition (in acute illness) Energy Intake: <75% of estimated energy requirement for > 7 days Weight Loss: 1-2%/1 week; 5%/ 1 month; 7.5%/3 months Other: mild body fat loss; mild muscle mass loss; mild fluid accumulation; Severe Malnutrition (in acute illness) Energy Intake: < 50% of estimated energy requirement for > 5 days Weight Loss: >1-2%/1 week; >5%/1 month; >7.5%/3 months Other: moderate body fat loss; moderate muscle mass loss; moderate- severe fluid accumulation; measurably reduced restaurant kitchen manager strength Moderate Malnutrition (in chronic illness) Energy Intake: <75% of estimated energy requirement for >1 month Weight Loss: 5%/1 month; 7.5%/3 months; 10%/6 months; 20%/1 year Other: mild body fat loss; mild muscle mass loss; mild fluid accumulation Severe Malnutrition (in chronic illness) Energy Intake: <75% of estimated energy requirement for >1 month Weight Loss: >5%/1 month; >7.5%/3 months; >10%/6 months; >20%/1 year Other: severe body fat loss; severe muscle mass loss; severe fluid accumulation; measurably reduced restaurant kitchen manager strength THANK YOU! Rebecca (This form is maintained as a part of the permanent medical record) 2014 [employer] All Rights Reserved Rebecca Nunes RN, BSN [email or web address] Office: [phone] [facility]
[2018-02-21] MEDS: Metoprolol Tartrate 25 MG TAB PO SCH ×2 (09:07→09:59)
[2018-02-21] MEDS: Famotidine 20 MG TAB PO SCH (09:08)
[2018-02-21] MEDS: Clopidogrel Bisulfate 75 MG TAB PO SCH (09:08)
[2018-02-21] MEDS: Guaifenesin DM 100-10/5 ML UDCUP PO PRN (11:49)
[2018-02-21 16:18] VITALS: TEMP 98.7
[2018-02-21 17:28] VITALS: BP 110/66
--- NOTE | 2018-02-21 21:43 | EKG ---
Test Reason : Blood Pressure : / mmHG Vent. Rate : 067 BPM Atrial Rate : 067 BPM P-R Int : 122 ms QRS Dur : 082 ms QT Int : 414 ms P-R-T Axes : 029 012 -75 degrees QTc Int : 437 ms Normal sinus rhythm Low voltage QRS T wave abnormality, consider lateral ischemia Abnormal ECG When compared with ECG of 18-FEB-2018 05:23, (Unconfirmed) Inverted T waves have replaced nonspecific T wave abnormality in Lateral leads Confirmed by Franco COLLAZO ([id number]) on 02/21/2018 9:43:27 PM Referred By: GREGORIO Confirmed By:Franco COLLAZO
--- NOTE | 2018-02-22 13:15 | DIS ---
DATE OF ADMISSION: 02/18/2018 DATE OF DISCHARGE: 02/21/2018 PRIMARY CARE PHYSICIAN: None. The patient is instructed to follow up with Dr. Neha Hargrove on 02/23/2018 at 10 in the morning. IN-HOUSE CONSULTATION: Cardiology, Dr. Vitale. DISCHARGE DIAGNOSES: 1. ST-elevation myocardial infarction, status post cardiac stenting to circumflex artery. 2. Hypertension. 3. Dyslipidemia. 4. Tobacco abuse. 5. Noncompliance. DISCHARGE MEDICATIONS: 1. Nitroglycerin sublingual q.5 minutes p.r.n. as needed for chest pain. 2. Toprol-XL 25 mg daily. 3. Plavix 75 mg daily. 4. Lipitor 40 mg daily. 5. Aspirin 81 mg daily. Please note that no DONOVAN inhibitor or ARBs could be prescribed because of the low blood pressure. PROCEDURES PERFORMED: Procedures done in the hospital include; 1. Cardiac catheterization, which showed 2-vessel coronary artery disease in the left anterior descending and circumflex with successful percutaneous coronary intervention and placement of bare metal stent to the mid circumflex coronary artery. 2. Carotid Doppler ultrasound. The patient has no hemodynamically significant stenosis involving the internal carotid artery. A large right-sided thyroid nodule is noticed. 3. Thyroid ultrasound, which once again shows bilateral thyroid nodules. The large solid nodule in the lower pole of the right lobe is seen which could be parathyroid mass. 4. Echocardiogram which shows ejection fraction of 50% to 55%, end diastolic dysfunction with hypokinesis of the posterior wall in the left ventricle and moderate mitral regurgitation. HISTORY OF PRESENTING ILLNESS: Ms. Butler is a 67-year-old female with history of tobacco abuse, hypertension, dyslipidemia, who is noncompliant with medication, presented to the emergency room with severe chest pain. Upon presentation, she had ST depression in V2, V3, and inverted T-waves. ST elevation in second, third, and AVF was noticed. Her troponin was 0.071, CK-MB 21.6. She was admitted with a presumptive diagnosis of ST elevation [place]. Cardiology was consulted and she was scheduled for PCI. Please see admission history and physical for further details. HOSPITAL COURSE: The patient underwent emergent PCI and was found to have 2-vessel cardiac disease as above. A bare metal stent was placed in left circumflex and she was started on appropriate cardiac prudent medications. Incidental finding of thyroid nodules were seen as above, which she will follow up with primary care physician in the outpatient setting. At this time, TSH, free T3, and T4 are unremarkable. Her peak troponin went up to 44.980. She was started on aspirin, beta-elian, statin and Plavix and was given prescriptions for same. Her echocardiogram showed preserved ejection fraction without any significant wall motion abnormality. As of this morning, she has been cleared for discharge by Cardiology and is hemodynamically stable. She was seen and examined prior to discharge. PHYSICAL EXAMINATION: VITAL SIGNS: This morning, temperature 98.7, pulse of 79, respirations 14, saturating 97% on room air, blood pressure 110/66. GENERAL: No acute distress. Awake, alert, oriented x3. CHEST: Clear to auscultation bilaterally. DISCHARGE PLAN: Discharge plan was discussed with the patient in detail and extreme education was done regarding tobacco abuse and medication noncompliance. I feel that she has understood that next time if she has cardiac symptoms that can be fatal if she remains noncompliant with her medication or continues to smoke. She is encouraged to follow up with Dr. Vitale in the outpatient setting and appointment has been set up for her with primary care physician as well as cardiac rehab. Her cardiac rehab appointment is on 03/08/2018 at 11:00 a.m. An appointment with Dr. Vitale is on 04/10/2018 at 9:45 a.m. Total time spent in the discharge of this patient 35 minutes. Job ID: [id number]
--- NOTE | 2018-02-24 14:32 | EKG ---
Test Reason : Blood Pressure : / mmHG Vent. Rate : 072 BPM Atrial Rate : 072 BPM P-R Int : 128 ms QRS Dur : 086 ms QT Int : 386 ms P-R-T Axes : 013 033 065 degrees QTc Int : 422 ms Normal sinus rhythm Abnormal ECG T wave inversion V1 V2, V3 ST depression Confirmed by MARGARET BURT D.O. ([id number]), features editor TANA ADAME ([id number]) on 02/24/2018 2:32:09 PM Referred By: Confirmed By:MARGARET BURT D.O.
--- NOTE | 2018-02-24 14:38 | EKG ---
Test Reason : Blood Pressure : / mmHG Vent. Rate : 069 BPM Atrial Rate : 069 BPM P-R Int : 118 ms QRS Dur : 088 ms QT Int : 404 ms P-R-T Axes : 008 041 081 degrees QTc Int : 432 ms Normal sinus rhythm ST elevation consider inferolateral injury or acute infarct * ACUTE [place] * Consider right ventricular involvement in acute inferior infarct Abnormal ECG Confirmed by MARGARET BURT D.O. ([id number]), development editor TANA ADAME ([id number]) on 02/24/2018 2:37:41 PM Referred By: Confirmed By:MARGARET BURT D.O.
== END 2018-02-21 18:39 | disposition home or self-care (01) | DRG 249 ==
LOC: ERS 21:37 → CCL 02-18 00:29 → CCU 02-18 01:37 → 2NO 02-20 21:48
PROVIDERS: ADMIT Internal Medicine Cardiovascular Disease; ATTEND Internal Medicine Cardiovascular Disease
PROC: 02703DZ Dilation of Coronary Artery, One Artery with Intraluminal Device, Percutaneous Approach (ICD-10-PCS; principal; 2018-02-18)
PROC: 4A023N7 Measurement of Cardiac Sampling and Pressure, Left Heart, Percutaneous Approach (ICD-10-PCS; 2018-02-18)
PROC: B2111ZZ Fluoroscopy of Multiple Coronary Arteries using Low Osmolar Contrast (ICD-10-PCS; 2018-02-18)
PROC: B2151ZZ Fluoroscopy of Left Heart using Low Osmolar Contrast (ICD-10-PCS; 2018-02-18)
DX: I21.3 ST elevation (STEMI) myocardial infarction of unspecified site (principal); E44.0 Moderate protein-calorie malnutrition; Z68.1 Body mass index [BMI] 19.9 or less, adult; I10 Essential (primary) hypertension; E78.5 Hyperlipidemia, unspecified; F17.210 Nicotine dependence, cigarettes, uncomplicated; Z91.14 Patient's other noncompliance with medication regimen; E04.1 Nontoxic single thyroid nodule
CPT/HCPCS: 36415; 71045; 76536; 80053; 80061; 82550; 82553; 84439; 84443; 84481; 84484; 85025; 85347; 85610; 85730; 86850; 86900; 86901; 92941; 93005; 93010; 93306; 93454; 93798; 93880; 94640; 96365; 96368; 96375; C1725; C1769; C1876; C1887; J0583; J1265; J1644; J2405; J7620; S0028